=== PATIENT | female | born 2000 | race Caucasian/White ===

== ENCOUNTER 2021-05-25 19:29 | Emergency (ER) | payer OTHER ==
[~2021-05-25] VITALS: Ht 157.5 cm; Wt 60.0 kg
[2021-05-25 19:58] VITALS: BP 115/71
[2021-05-25] MEDS ORDERED: MUPIROCIN 2% TOPICAL OINTMENT 22GM TUBE. TP ONE (20:45)
[2021-05-25] MEDS ORDERED: MUPI22OI2 TP (20:54)
--- NOTE | 2021-05-25 20:54 | PHYS DOC ---
Past History Additional Past Medical Histor: ECZEMA Past Surgical History: No Surgical History General Adult EDM: Chief Complaint: ALLERGIC REACTION HPI: HPI: Patient is a [age] year old [sex] who presents with [] Review of Systems: Review of Systems: Constitutional: Denies fever or chills Eyes: Denies redness or eye pain HENT: Denies nasal congestion or sore throat Respiratory: Denies cough or shortness of breath Cardiovascular: Denies chest pain or palpitations GI: Denies abdominal pain, nausea, or vomiting : Denies dysuria or hematuria Musculoskeletal: Denies back pain or joint pain Integument: Denies rash or skin lesions Neurologic: Denies headache, focal weakness or sensory changes Complete systems were reviewed and found to be within normal limits, except as documented in this note. Current Medications: Current Meds: Current Medications Medications (Trade) Dose Ordered Sig/Nesha Start Time Stop Time Status Last Admin Dose Admin Mupirocin (Bactroban) 1 elza 1X ONCE 05/25/21 20:45 05/25/21 20:46 DC Allergies: Allergies: Allergies Coded Allergies Type Severity Reaction Last Updated Verified No Known Drug Allergies 05/25/21 No Physical Exam: PE: Constitutional: Well developed, well nourished, no acute distress, non-toxic appearance HENT: Normocephalic, atraumatic Eyes: PERRL, EOMI, conjunctiva normal, no discharge Neck: Normal range of motion, no tenderness, supple Lungs & Thorax: No respiratory distress, equal chest rise and fall Abdomen: Soft, no tenderness Skin: Warm, dry, no erythema, no rash Back: No tenderness, no CVA tenderness Extremities: No tenderness, ROM intact, no edema Neurologic: Alert and oriented X 3, normal motor function, normal sensory function, no focal deficits noted Psychologic: Affect normal, judgment normal Current Patient Data: Vital Signs: Vital Signs Date Time Temp Pulse Resp B/P (MAP) Pulse Ox O2 Delivery O2 Flow Rate FiO2 05/25/21 19:58 97.9 82 18 115/71 (86) 99 Room Air EKG: EKG: [] Radiology/Procedures: Radiology/Procedures: [] Heart Score: C/O Chest Pain: N/A Course & Med Decision Making: Course & Med Decision Making Patient stable for discharge with outpatient follow-up with PCP. Discussed findings and plan with patient, who acknowledges understanding and agreement. Anselmo Disclaimer: Anselmo Disclaimer: This electronic medical record was generated, in whole or in part, using a voice recognition dictation system. Departure Departure: Impression: Primary Impression: Contact dermatitis Qualified Codes: L25.3 - Unspecified contact dermatitis due to other chemical products Disposition: HOME / SELF CARE / HOMELESS Condition: STABLE Referrals: BLANCA OVERTON DO, MPH (PCP) Patient Instructions: Contact Dermatitis, [id number] Additional Instructions: Do not soak your wound. You may shower. Clean wound daily with soap and water. Change dressing 2 times daily. Use prescribed antibiotic ointment with each dressing change for next 5 to 7 days until wounds have healed. Scripts Mupirocin (MUPIROCIN) 22 Gm Oint...g. 1 ELZA TP TID for Wounds for 7 Days, #15 GM Prov: CAMILO BORJA DO 05/25/21 CAMILO BORJA DO May 25, 2021 20:54
== END 2021-05-25 21:00 | disposition home or self-care (01) ==
LOC: ER 19:29
DX: L25.3 Unspecified contact dermatitis due to other chemical products (principal)
CPT/HCPCS: 99283